=== PATIENT | female | born 1985 | race African-American/Black ===

== ENCOUNTER 2016-07-28 13:00 | Emergency (ER) | payer OTHER ==
[~2016-07-28] VITALS: Ht 172.7 cm; Wt 83.9 kg
[2016-07-28 13:15] VITALS: BP 137/87
== END 2016-07-28 16:49 | disposition left against medical advice (07) ==
LOC: ER 13:00
DX: J02.9 Acute pharyngitis, unspecified (principal); Z53.21 Procedure and treatment not carried out due to patient leaving prior to being seen by health care provider